=== PATIENT | female | born 1985 | race Caucasian/White ===

== ENCOUNTER → 2022-07-02 10:09 | Outpatient (BNVA) | payer OTHER, SELFPAY | PROVIDERS: PCP Family Medicine; Visit Provider Physician Assistant | DX: Z13.89 Encounter for screening for other disorder (principal) ==

== ENCOUNTER → 2022-07-02 10:09 | Outpatient (BNVA) | payer OTHER, SELFPAY | PROVIDERS: PCP Family Medicine; Visit Provider Physician Assistant ==

== ENCOUNTER → 2022-07-09 08:33 | Outpatient (BNVA) | payer OTHER, SELFPAY | PROVIDERS: PCP Family Medicine; Visit Provider Physician Assistant | DX: Z13.89 Encounter for screening for other disorder (principal) ==

== ENCOUNTER → 2022-07-24 09:31 | Outpatient (BNVA) | payer OTHER, SELFPAY | PROVIDERS: PCP Family Medicine; Visit Provider Physician Assistant | DX: Z13.89 Encounter for screening for other disorder (principal) ==

== ENCOUNTER 2022-07-31 09:54 | Outpatient (REF) | payer OTHER, SELFPAY ==
[2022-08-01 11:27] LABS: H Pylori Breath Test Negative (Negative)
== END 2022-07-31 09:55 | disposition home or self-care (01) ==
LOC: HO.LNP 09:54
PROVIDERS: PCP Family Medicine; Visit Provider Physician Assistant
DX: E66.9 Obesity, unspecified (principal); E16.1 Other hypoglycemia; Z90.3 Acquired absence of stomach [part of]; Z11.0 Encounter for screening for intestinal infectious diseases
CPT/HCPCS: 83013

== ENCOUNTER 2022-08-04 09:44 | Outpatient (REF) | payer OTHER, SELFPAY ==
--- NOTE | ~2022-08-04 | XR_ITS ---
EXAMINATION: XR CHEST CLINICAL INFORMATION: Bariatric service evaluation. E66.9. COMPARISON: None available. TECHNIQUE: 2 views of the chest were obtained. FINDINGS: Lungs clear. Heart size normal. Vascularity normal. No airspace consolidation or groundglass opacity or effusion. The hilar and mediastinal contours and visualized bony structures are unremarkable. XR/XR chest 2V IMPRESSION: Unremarkable examination.
--- NOTE | 2022-08-04 09:48 | ECG_ITS ---
Test Reason : OBS Blood Pressure : / mmHG Vent. Rate : 065 BPM Atrial Rate : 065 BPM P-R Int : 170 ms QRS Dur : 090 ms QT Int : 414 ms P-R-T Axes : 057 005 004 degrees QTc Int : 430 ms Normal sinus rhythm Normal ECG No previous ECGs available Referred By: Catrachita Castro Electronically Signed By:Sergio Wong
[2022-08-04 09:58] LABS: MANUAL DIFF FLAG NO
[2022-08-04 11:45] LABS: Basophils Percent Auto 0.5 % (0-2); Eosinophils Absolute Auto 0.1 X10*3/uL (0.0-0.4); Eosinophils Percent Auto 1.3 % (0-4); Hematocrit 39.6 % (37.0-47.0); Hemoglobin 12.8 g/dl (12.0-16.0); Imm Gran Abs Auto 0.01 X10*3/uL (0.00-0.03); Imm Gran Pct Auto 0.2 % (0.0-0.4); Lymphocytes Absolute Auto 1.3 X10*3/uL (1.2-4.9); Lymphocytes Percent Auto 23.7 % (20-40); Mean Corpuscular HGB Conc 32.3 g/dl (31.0-35.0); Mean Corpuscular Hemoglobin 30.3 pg (27.0-33.0); Mean Corpuscular Volume 93.6 fL (80.0-98.0); Mean Platelet Volume 10.2 fL (9.4-12.3); Monocytes Absolute Auto 0.4 X10*3/uL (0.1-1.2); Monocytes Percent Auto 6.9 % (2-11); Neutrophils Absolute Auto 3.7 x10*3/uL (2.0-8.3); Neutrophils Percent Auto 67.4 % (45-73); Platelet Count 229 X10*3/uL (160-400); Red Blood Count 4.23 X10*6/uL (4.20-5.50); Red Cell Distribution Width 13.5 % (11.0-16.0); White Blood Count 5.5 X10*3/uL (4.8-10.8)
[2022-08-04 11:47] LABS: Estimated Average Glucose 97 mg/dL
[2022-08-04 12:24] LABS: Alanine Aminotransferase 41 U/L (0-31); Albumin Level 4.1 g/dL (3.5-5.0); Alkaline Phosphatase 33 U/L (39-117); Anion Gap 12 (12-20); Aspartate Amino Transferase 31 U/L (5-31); Bilirubin Total 0.5 mg/dL (0.0-1.0); Blood Urea Nitrogen 15 mg/dL (9-16); C Reactive Protein < 0.10 mg/dL (< or = 0.50); Carbon Dioxide 25 mmol/L (22-29); Chloride 107 mmol/L (96-108); Cholesterol 175 mg/dL; Estimated Glomerular Filt Rate > 60; Glucose Random 87 mg/dL (60-115); HDL Cholesterol 47 mg/dL; Iron 98 mcg/dL (30-160); LDL Cholesterol Calculated 114 mg/dl; Percent Iron Saturation 31 % (15-50); Potassium 4.3 mmol/L (3.3-5.1); Sodium 140 mmol/L (135-145); Total Iron Binding Capacity 316 mcg/dL (228-428); Total Protein 6.9 g/dL (6.5-8.0); Triglycerides 70 mg/dL; Unsaturated Iron Binding 218 ug/dL
[2022-08-04 12:50] LABS: Ferritin 18 ng/mL (10-122); Folate 11.2 ng/mL (> or = 4.0); Insulin 6 uU/mL (2-29); TSH reflex Free T4 1.66 uIU/mL (0.32-4.0); Vitamin B12 295 pg/mL (200-900); Vitamin D 25-OH Total 28.9 ng/mL (>30)
[2022-08-06 14:28] LABS: Calcium (PTHI) 9.3 mg/dL (8.6-10.2); PTHI 30 pg/mL (16-77)
[2022-08-07 14:53] LABS: Zinc 71 mcg/dL (60-130)
[2022-08-08 06:08] LABS: Vitamin A 42 mcg/dL (38-98)
[2022-08-10 17:24] LABS: Vitamin B1 13 nmol/L (8-30)
== END 2022-08-04 09:45 | disposition home or self-care (01) ==
LOC: HO.XRAY 09:44
PROVIDERS: Visit Provider Physician Assistant
DX: Z01.818 Encounter for other preprocedural examination (principal); E66.9 Obesity, unspecified; E16.1 Other hypoglycemia; Z90.3 Acquired absence of stomach [part of]
CPT/HCPCS: 36415; 71046; 80053; 80061; 82306; 82607; 82728; 82746; 83036; 83525; 83540; 83970; 84425; 84443; 84590; 84630; 85025; 86140; 93005

== ENCOUNTER → 2022-08-14 09:34 | Outpatient (BNVA) | payer OTHER, SELFPAY | PROVIDERS: PCP Family Medicine; Visit Provider Physician Assistant | DX: E66.9 Obesity, unspecified (principal); Z90.3 Acquired absence of stomach [part of]; E16.1 Other hypoglycemia ==

== ENCOUNTER → 2022-08-25 10:16 | Outpatient (BNVA) | payer OTHER, SELFPAY | PROVIDERS: PCP Family Medicine; Visit Provider Dietitian, Registered | DX: E66.9 Obesity, unspecified (principal); E16.1 Other hypoglycemia; F50.81 Binge eating disorder; Z71.3 Dietary counseling and surveillance | CPT/HCPCS: 97802 ==

== ENCOUNTER → 2022-08-28 10:00 | Outpatient (BNVA) | payer OTHER, SELFPAY | PROVIDERS: PCP Family Medicine; Visit Provider Counselor Mental Health ==

== ENCOUNTER → 2022-09-04 15:00 | Outpatient (BNVA) | payer OTHER, SELFPAY | PROVIDERS: PCP Family Medicine; Visit Provider Physician Assistant ==

== ENCOUNTER 2022-09-16 08:00 | Outpatient (REF) | payer OTHER, SELFPAY ==
--- NOTE | ~2022-09-16 | FL_ITS ---
EXAMINATION: XR FLUOROSCOPY UPPER GI WITH AIR CLINICAL INFORMATION: Obesity COMPARISON: None available. TECHNIQUE: Upper GI was performed using thin and thick barium and effervescent granules FINDINGS: There is severe gastroesophageal reflux. Esophageal motility is normal. No hernia is seen. There are postsurgical changes to the stomach from gastric sleeve. No ulcer, mass, stricture or fold thickening is seen. FLUOROSCOPY TIME: 0.4 minutes DOSE AREA PRODUCT: 4.6 sparks per centimeter squared. Total dose 17.6 mgy. 18 saved fluoroscopic images FL/FL upper GI w air IMPRESSION: Postoperative change from gastric sleeve. Severe gastroesophageal reflux.
--- NOTE | ~2022-09-16 | US_ITS ---
EXAMINATION: US COMPLETE ABDOMEN WITH LIVER ELASTOGRAPHY CLINICAL INFORMATION: Obesity. COMPARISON: None available. TECHNIQUE: Real-time imaging of the abdominal viscera. Noninvasive ultrasound liver fibrosis assessment is performed using She ElastPQ point quantification shear wave elastography (2D-SWE) with a C5-2 MHz transducer. Multiple elastography samples are obtained. FINDINGS: PANCREAS: Normal. The visualized pancreatic head and body are normal in appearance. The remainder of is obscured from visualization by the overlying bowel gas. ABDOMINAL AORTA: The proximal, middle, and distal aortic segments are normal in caliber. INFERIOR VENA CAVA: Visualized portions are normal. LIVER: The liver demonstrates normal size, contour and mildly increased echogenicity. No focal lesion or intrahepatic biliary duct dilatation. The right lobe measures 16.6 cm in length. The left lobe measures 11.2 cm in length. Portal flow is towards the liver (hepatopetal). Shear wave liver elastography median stiffness is 1.62 m/s (reference: normal median stiffness is 1.3 m/s or less). IQR/median stiffness to assess sampling precision is 0.04 (reference: good quality data set is IQR/median stiffness of 0.15 or less). GALLBLADDER: Normal. The gallbladder is physiologically distended without evidence of stones, sludge, polyps, wall thickening or pericholecystic fluid. COMMON BILE DUCT: Normal in caliber measuring 0.4 cm in diameter. RIGHT KIDNEY: Normal. No hydronephrosis. No renal calculi or focal parenchymal lesions. The kidney measures 11.7 cm in maximum dimension. LEFT KIDNEY: Normal. No hydronephrosis. No renal calculi or focal parenchymal lesions. The kidney measures 10.8 cm in maximum dimension. SPLEEN: Normal. The spleen measures 10.8 cm in maximum dimension. FREE FLUID: None. US/US abdomen comp w elastography IMPRESSION: 1. There is generalized increase in hepatic echotexture, consistent with fatty infiltration or hepatocellular disease. Please correlate clinically. No focal hepatic mass or intrahepatic biliary dilatation is seen. 2. Liver elastography: In the absence of other known clinical signs, measurements rule out compensated advanced chronic liver disease. If there are known clinical signs, further testing may be needed for confirmation. REFERENCE: Society of Radiologists in Ultrasound Liver Stiffness Thresholds (2020): LIVER STIFFNESS THRESHOLDS: *Liver Stiffness equal or less than 1.3 m/s: High probability of being normal. *Liver Stiffness less than 1.7 m/s: In the absence of other known clinical signs, rules out compensated advanced chronic liver disease. *Liver Stiffness 1.7-2.1 m/s: Suggestive of compensated advanced chronic liver disease but need further test for confirmation. *Liver Stiffness over 2.1 m/s: Rules in compensated advanced chronic liver disease. *Liver Stiffness over 2.4 m/s: Suggestive of clinically significant portal hypertension. QUALITY OF DATA SET: *IQR/Median value equal or less than 0.15 implies a quality data set. *IQR/Median value over 0.15 implies a poor quality data set. SIGNIFICANT CHANGE FROM PRIOR EXAM: Significant change if liver stiffness measurement is 10% or greater from prior exam. OTHER CONSIDERATIONS: The stage of liver fibrosis may be overestimated in the setting of acute hepatitis, liver inflammation, elevated liver function tests, hepatic vascular congestion, obstructive cholestasis, non-fasting state, and infiltrative diseases such as amyloidosis and lymphoma. In some patients with NAFLD, the liver stiffness thresholds for compensated advanced chronic liver disease may be lower. In causes other than viral hepatitis and NAFLD, liver stiffness thresholds are not well established.
== END 2022-09-16 08:01 | disposition home or self-care (01) ==
LOC: HO.US 08:00
PROVIDERS: PCP Family Medicine; Visit Provider Physician Assistant
DX: E16.1 Other hypoglycemia (principal); E66.9 Obesity, unspecified; Z90.3 Acquired absence of stomach [part of]
CPT/HCPCS: 74246; 76705; 76981

== ENCOUNTER → 2022-09-17 13:22 | Outpatient (BNVA) | payer OTHER, SELFPAY | PROVIDERS: PCP Family Medicine; Visit Provider Counselor Mental Health ==

== ENCOUNTER → 2022-10-02 10:30 | Outpatient (BNVA) | payer OTHER, SELFPAY | PROVIDERS: PCP Family Medicine; Visit Provider Counselor Mental Health ==

== ENCOUNTER 2022-10-27 11:30 | Outpatient (AMB) | payer OTHER, SELFPAY ==
--- NOTE | 2022-10-27 13:13 | A.OFFWM_ITS ---
Intake Intake Visit Reasons: VIDEO F/U Allergies NSAIDS (Non-Steroidal Anti-Inflamma Allergy (Severe, Verified 10/27/22 12:54) Swelling hormone therpy Adverse Reaction (Intermediate, Uncoded 07/02/22 11:52) Swelling PFSH Medical History (Updated 09/01/22 @ 10:12 by Margarette Willson) DVT (deep venous thrombosis) Surgical History DVT of leg (deep venous thrombosis) H/O gastric sleeve Hx of section Family History Mother Diabetes Heart disease Father Bladder cancer Maternal Uncle Pulmonary embolism Social History Alcohol intake: current Alcohol intake frequency: a few times a week Patient Tobacco Use Status: Current everyday Tobacco user Tobacco use type: Cigarette Cigarettes Per Day: 6 Behavioral Health Assessment Weight Management Therapy Therapy Notes Details Patient reported an increase in anxiety. Does not understand why she cannot accomplish her goals but over extends herself for everyone else. She recently volunteered to make and buy items for a friends daughters birthday and now upset with herself as she does not have the money or time. Pt pondered why she always does this, why does she always want to go over the top for others but not herself. We discussed awareness, pausing, and reflecting also on childhood and what she did not receive. Not ready for EMDR but discussed actively working on self to be prepared if she decided to. Pt is looking to have weight loss surgery revision to help improve her health and quality of life. Pt reported that she has symptoms of ADHD and also depression and anxiety. She sees a therapist at her doctors office [facility] and her doctor prescribes her psychiatric medications. No history of inpatient psychiatric admissions, she reported that she used to self harm in high school and also would restrict food, now realizes she may have been anorexic. Pt reported that she has been smoking cigarettes since age 15, and also marijuana since age 18 periodically. She uses it every night. She reported that she almost in 2011 from DVT. Presenting Concerns Referral Source provider Reason for referral weight loss surgery revision Precipitating Event obesity Living Situation Current Living Situation Own At risk of losing current housing? No Satisfied with current living situation? Yes Comments Pt lives with her and her daughter. Food/Weight/Diet Expectations of change weight loss History/Relationship with food Pt stated that food is always there and would eat it if she is happy, sad, upset etc. She drinks up to 15 cups of coffee, soups, salads during the day. She stated that she struggled the most at night and would sit down and eat large portions and graze up until bed time. History/Relationship with weight LSG surgery in 2017 at 300lbs and got down to 175lbs. She reported a memory of being 7 years old eating a frozen waffle with butter on it. Pt stated that she started to gain weight around the age she hit puberty. History/Relationship with dieting sleeve done in 2017, exercise (up to 3 hours a day), self diets Binge Eating Do you frequently eat large amounts of food in short periods of time, not feeling physically hungry? Yes Do you feel out of control when you eat a large amount of food in a short period of time? No Do you eat large amounts of food rapidly and typically alone? No Night Eating Do you wake up at least once during the night to eat? No If you wake up in the night, do you find that it is necessary to eat something in order to fall back asleep? No Do you have little or no appetite in the morning and feel very hungry in the evening, often overeating between dinner and when you go to bed? Yes Social History Family history and relationship Pt stated that she was raised by her parents and siblings. She reported chaotic upbringing, her father would go through episodic periods of bipolar depression and also had to raise her two younger siblings. Pt is to her of 11 years and they have an 8 year old daughter together. 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 Cultural/Ethnic information Legal Involvement and History Current or historical involvement with the legal system? none known Education Preferred learning style Auditory, Verbal, Written, Learn by doing and Visual Currently enrolled in educational program? No Interested in further educational program? No Educational Interests/Skills works one night a week as a [employer]. Employment Employment Status Unemployed Wants help to find employment? No Meaningful activities hiking Financial Situation Describe current financial situation Often struggles with finance Financial assistance? None Service Service? No Mental Health and Addiction Treatment Current/Past substance abuse? Yes Comments marijuana and cigarette use. Also consumes about 5 alcoholic drinks in one night when she goes out (once a week). Current/Past addictive behavior concerns? Yes Pain Screening Current pain? No Pain in the last few months? No Medications Is the patient compliant with medications? No Does the patient have [place] Guardian in place? Not applicable Does the patient use complimentary health approaches? No Trauma/Abuse History History of trauma? Yes Assessment & Plan Assessment & Plan (1) Major depressive disorder, recurrent, moderate: Code(s): F33.1 - Major depressive disorder, recurrent, moderate (2) Anxiety disorder, unspecified: Code(s): F41.9 - Anxiety disorder, unspecified (3) Obesity (BMI 30-39.9): Code(s): E66.9 - Obesity, unspecified Plan Patient has some risk factors, however has had previous sleeve done. She has been doing well and has cut back on substances since starting. Patient is cleared but will be seen ongoing for therapeutic support. Telehealth Telehealth Location of provider rendering services: other Location of patient: address on file Patient Identification confirmed using: Name, : Yes Telehealth method: video Patient verbally consented to treatment: Yes Patient verbally consented to billing insurance company: Yes Patient informed of any privacy concerns related to visit: Yes Minutes spent on Phone/Video with Pt.: 40 Coding Level of Care Code Tele Psytx 45 mins (06629) Diagnoses Major depressive disorder, recurrent, moderate F33.1 Anxiety disorder, unspecified F41.9 Obesity (BMI 30-39.9) E66.9 Time Spent (min) 40
== END 2022-10-27 13:12 | disposition home or self-care (01) ==
LOC: HO.HBST 12:02
PROVIDERS: PCP Family Medicine; Visit Provider Counselor Mental Health
DX: F33.1 Major depressive disorder, recurrent, moderate (principal); F41.9 Anxiety disorder, unspecified; E66.9 Obesity, unspecified; Z68.33 Body mass index [BMI] 33.0-33.9, adult
CPT/HCPCS: 90834

== ENCOUNTER → 2022-10-27 11:30 | Outpatient (BNVA) | payer OTHER, SELFPAY | PROVIDERS: PCP Family Medicine; Visit Provider Counselor Mental Health ==

== ENCOUNTER 2022-10-27 12:49 | Outpatient (AMB) | payer OTHER, SELFPAY ==
--- NOTE | 2022-10-27 09:35 | MHC.OFFVISWM ---
Intake VS Expanded 10/27/22 12:51 Height 5 ft 7.5 in Weight 217 lb 6.4 oz BMI 33.5 BP 109/71 Blood Pressure Location Rt brachial Blood Pressure Position Sitting Pulse 75 Pulse Source Pulse Oximeter Temp 98.3 F Temperature Source Temporal Artery Scan Pulse Oximetry 98 Oxygen Delivery Method Room Air Body Fat 88.8 Body Fat Percentage 40.9 Free Fat Mass 128.6 Muscle Mass 122.2 Visceral Mass 9.0 Water Mass 92.0 BMR 1,794 Intake Visit Reasons: (OV) F/U SWL Allergies NSAIDS (Non-Steroidal Anti-Inflamma Allergy (Severe, Verified 10/27/22 12:54) Swelling hormone therpy Adverse Reaction (Intermediate, Uncoded 07/02/22 11:52) Swelling HPI HPI Comments History of Present Illness Details SWL follow up for revision of previous LSG. [employer] weight of 230.4 on 07/09, last appt on 09/04. TBWL of 13 lbs or 5.6%. Prior to [employer] here patient describes waking up drowning in acid form her stomach - coughing up this fluid. It has not happened since starting our meal plan. meal plan: - had financial issues and was not able to buy protein shakes. Has now restarted. 9am - 2 eggs and 1/4 cup vegetables 12 pm - shake 5:30 pm - protein and veg - doesn't know how much - now has a scale to measure bar after dinner exercise: not routine. has exercise bike and videos. will start 5 days per week. Coffee -?5 cups in am with sugar free creamer -- will switch to decaf Alcohol intake: once per week, 4 vodka, seltzer tobacco:?10 cigarettes per day or more marijuana: 2-3 night sper week no snakcing Pre op work up completed as follows: SWL classes -? 06/18 BH appts - 08/28, not cleared, sees Margarette regularly? ? RD appts - 08/25, follow up 09/26 - missed this appt, rescheduled to 10/30 H pylori - negative Labs- vit d defic CXR and ECG - both normal UGI - Postoperative change from gastric sleeve. Severe gastroesophageal reflux. Not discussed with Dr Blackburn until patient has more progress. ULS- fatty liver ?? ? PFSH Medical History (Updated 09/01/22 @ 10:12 by Margarette Willson) DVT (deep venous thrombosis) Surgical History DVT of leg (deep venous thrombosis) H/O gastric sleeve Hx of section Family History Mother Diabetes Heart disease Father Bladder cancer Maternal Uncle Pulmonary embolism Social History (Updated 09/04/22 @ 15:05 by TATIANA Romero) Alcohol intake: current Alcohol intake frequency: a few times a week Patient Tobacco Use Status: Current everyday Tobacco user Tobacco use type: Cigarette Cigarettes Per Day: 6 Assessment & Plan Assessment & Plan (1) Obesity: Code(s): E66.9 - Obesity, unspecified Plan: Pt has lost 13 lbs or 5.9% TBWL and has made many chnges with her substance use. She is working with Margarette regularly and shows alot of progress, we discussed today and she is working on developing new coping skills. meal plan - decrease to decaf (her suggestion) 2 hours after waking - 2 eggs with 1/4 c vegetables 3-4 hours later - shake 3-4 hours later - dinner 40z and 4 oz - use scale bar after dinner Exercise - must start 30 minute videos or stationary bike 5d/week Will have Dr lBackburn review her UGI first week of November, next appt with me in 3 weeks. Patient is obese and is not considered stable at this time. I spent 30 minutes in total with patient reviewing/updating records, examining the patient and counseling the patient on weight management as detailed above. (2) H/O gastric sleeve: Comment: 12/2016 Kathy Code(s): Z90.3 - Acquired absence of stomach [part of] (3) Anxiety with depression: Code(s): F41.8 - Other specified anxiety disorders Coding Level of Care Code Est Pt Level 4 (08385) Diagnoses Obesity E66.9 H/O gastric sleeve Z90.3 Anxiety with depression F41.8
[2022-10-27 12:51] VITALS: BP 109/71; PULSE 75; TEMP 36.8; O2SAT 98; BMI 33.5
== END 2022-10-27 13:33 | disposition home or self-care (01) ==
PROVIDERS: PCP Family Medicine; Visit Provider Physician Assistant
DX: E66.9 Obesity, unspecified (principal); Z68.33 Body mass index [BMI] 33.0-33.9, adult; Z90.3 Acquired absence of stomach [part of]; Z98.84 Bariatric surgery status; F41.8 Other specified anxiety disorders
CPT/HCPCS: 99214

== ENCOUNTER 2022-10-30 10:00 | Outpatient (AMB) | payer OTHER, SELFPAY ==
--- NOTE | 2022-10-30 10:00 | MHC.AMNUTRGE ---
Intake Intake Visit Reasons: VIDEO F/U SWL Allergies NSAIDS (Non-Steroidal Anti-Inflamma Allergy (Severe, Verified 10/27/22 12:54) Swelling hormone therpy Adverse Reaction (Intermediate, Uncoded 07/02/22 11:52) Swelling HPI Nutrition Presentation Details [facility] 2016 Reason for consult elevated BMI Diet Assmnt Details Patient met with Catrachita 3 days ago. Patient sure she has had some financial setbacks that have impacted her ability to follow her nutrition plan. Breakfast 2 eggs Equate 30g protein shake Equate 30g protein shake dinner salads and protein - last night chicken on the grill and cauliflower Exercise: stationary bike, 6 miles/30minutes not consistent SWL online classes : 06/18 completed back in August, but hasn't made any progress since Dietary counseling reduction Diagnosis Nutrition problem #1 overweight/obesity As related to (etiology) #1 excess energy intake and physical inactivity As evidenced by (sign/symptom) #1 high BMI Monitoring/Goals Nutrition problem monitoring total energy intake, level of knowledge/skill, total PRO intake, total CHO intake, weight and oral fluids Outcome progress progressing Learning/Education Readiness to learn good Stages of change action Most Recent Diabetes Results: No Data to Display [facility] Medical History (Updated 09/01/22 @ 10:12 by Margarette Willson) DVT (deep venous thrombosis) Surgical History DVT of leg (deep venous thrombosis) H/O gastric sleeve Hx of section Family History Mother Diabetes Heart disease Father Bladder cancer Maternal Uncle Pulmonary embolism Social History Alcohol intake: current Alcohol intake frequency: a few times a week Patient Tobacco Use Status: Current everyday Tobacco user Tobacco use type: Cigarette Cigarettes Per Day: 6 Assessment & Plan Assessment & Plan (1) Obesity (BMI 30-39.9): Code(s): E66.9 - Obesity, unspecified Patient Instructions: Will need another follow up with me to review classes and help support pt to follow 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 She will complete her online classes and follow-up with me 12/10 at 10am Telehealth Telehealth Location of provider rendering services: practice address Location of patient: address on file Patient Identification confirmed using: Name, : Yes Telehealth method: video Patient verbally consented to treatment: Yes Patient verbally consented to billing insurance company: Yes Patient informed of any privacy concerns related to visit: Yes Minutes spent on Phone/Video with Pt.: 10 Coding Level of Care Code Nutr Indiv Subseq ([id number]) Diagnoses Obesity (BMI 30-39.9) E66.9 Time Spent (min) 10
== END 2022-10-30 11:00 | disposition home or self-care (01) ==
LOC: HO.HBS 10:45
PROVIDERS: PCP Family Medicine; Visit Provider Dietitian, Registered
DX: E66.9 Obesity, unspecified (principal)

== ENCOUNTER → 2022-10-30 10:00 | Outpatient (BNVA) | payer OTHER, SELFPAY | PROVIDERS: PCP Family Medicine; Visit Provider Dietitian, Registered | DX: E66.9 Obesity, unspecified (principal); Z90.3 Acquired absence of stomach [part of] | CPT/HCPCS: 97803 ==

== ENCOUNTER 2022-11-05 13:07 | Outpatient (AMB) | payer OTHER, SELFPAY ==
--- NOTE | 2022-11-05 16:40 | A.OFFWM_ITS ---
Intake Intake Visit Reasons: (OV) f/u BH Allergies NSAIDS (Non-Steroidal Anti-Inflamma Allergy (Severe, Verified 10/27/22 12:54) Swelling hormone therpy Adverse Reaction (Intermediate, Uncoded 07/02/22 11:52) Swelling PFSH Medical History (Updated 09/01/22 @ 10:12 by Margarette Willson) DVT (deep venous thrombosis) Surgical History DVT of leg (deep venous thrombosis) H/O gastric sleeve Hx of section Family History Mother Diabetes Heart disease Father Bladder cancer Maternal Uncle Pulmonary embolism Social History Alcohol intake: current Alcohol intake frequency: a few times a week Patient Tobacco Use Status: Current everyday Tobacco user Tobacco use type: Cigarette Cigarettes Per Day: 6 Behavioral Health Assessment Weight Management Therapy Therapy Notes Details Patient was distraught and tearful today. Reported that her asked for a separation and she is fearful they wont make it. She now sees how wrong she was with many things including communication, irritability, alcohol use and lack of healthy coping skills. Although she feels she has made many mistakes, she reported that it was a big wake up call for her to really focus on improving herself. Pt is looking to have weight loss surgery revision to help improve her health and quality of life. Pt reported that she has symptoms of ADHD and also depression and anxiety. She sees a therapist at her doctors office [facility] and her doctor prescribes her psychiatric medications. No history of inpatient psychiatric admissions, she reported that she used to self harm in high school and also would restrict food, now realizes she may have been anorexic. Pt reported that she has been smoking cigarettes since age 15, and also marijuana since age 18 periodically. She uses it every night. She reported that she almost in 2011 from DVT. Presenting Concerns Referral Source provider Reason for referral weight loss surgery revision Precipitating Event obesity Living Situation Current Living Situation Own At risk of losing current housing? No Satisfied with current living situation? Yes Comments Pt lives with her and her daughter. Food/Weight/Diet Expectations of change weight loss History/Relationship with food Pt stated that food is always there and would eat it if she is happy, sad, upset etc. She drinks up to 15 cups of coffee, soups, salads during the day. She stated that she struggled the most at night and would sit down and eat large portions and graze up until bed time. History/Relationship with weight LSG surgery in 2017 at 300lbs and got down to 175lbs. She reported a memory of being 7 years old eating a frozen waffle with butter on it. Pt stated that she started to gain weight around the age she hit puberty. History/Relationship with dieting sleeve done in 2017, exercise (up to 3 hours a day), self diets Binge Eating Do you frequently eat large amounts of food in short periods of time, not feeling physically hungry? Yes Do you feel out of control when you eat a large amount of food in a short period of time? No Do you eat large amounts of food rapidly and typically alone? No Night Eating Do you wake up at least once during the night to eat? No If you wake up in the night, do you find that it is necessary to eat something in order to fall back asleep? No Do you have little or no appetite in the morning and feel very hungry in the evening, often overeating between dinner and when you go to bed? Yes Social History Family history and relationship Pt stated that she was raised by her parents and siblings. She reported chaotic upbringing, her father would go through episodic periods of bipolar depression and also had to raise her two younger siblings. Pt is to her of 11 years and they have an 8 year old daughter together. 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 Cultural/Ethnic information Legal Involvement and History Current or historical involvement with the legal system? none known Education Preferred learning style Auditory, Verbal, Written, Learn by doing and Visual Currently enrolled in educational program? No Interested in further educational program? No Educational Interests/Skills works one night a week as a [employer]. Employment Employment Status Unemployed Wants help to find employment? No Meaningful activities hiking Financial Situation Describe current financial situation Often struggles with finance Financial assistance? None Service Service? No Mental Health and Addiction Treatment Current/Past substance abuse? Yes Comments marijuana and cigarette use. Also consumes about 5 alcoholic drinks in one night when she goes out (once a week). Current/Past addictive behavior concerns? Yes Pain Screening Current pain? No Pain in the last few months? No Medications Is the patient compliant with medications? No Does the patient have [place] Guardian in place? Not applicable Does the patient use complimentary health approaches? No Trauma/Abuse History History of trauma? Yes Assessment & Plan Assessment & Plan (1) Major depressive disorder, recurrent, moderate: Code(s): F33.1 - Major depressive disorder, recurrent, moderate (2) Anxiety disorder, unspecified: Code(s): F41.9 - Anxiety disorder, unspecified (3) Obesity (BMI 30-39.9): Code(s): E66.9 - Obesity, unspecified Plan Patient has some risk factors, however has had previous sleeve done. She has been doing well and has cut back on substances since starting. She should continue to abstain from alcohol as she reported alcohol abuse after she had her previous surgery. Patient is cleared but will be seen ongoing for therapeutic support. Coding Level of Care Code Psytx 45 mins ([id number]) Diagnoses Major depressive disorder, recurrent, moderate F33.1 Anxiety disorder, unspecified F41.9 Obesity (BMI 30-39.9) E66.9 Time Spent (min) 40
== END 2022-11-05 16:40 | disposition home or self-care (01) ==
PROVIDERS: PCP Family Medicine; Visit Provider Counselor Mental Health
DX: F33.1 Major depressive disorder, recurrent, moderate (principal); F41.9 Anxiety disorder, unspecified; E66.9 Obesity, unspecified
CPT/HCPCS: 90834

== ENCOUNTER → 2022-11-05 13:07 | Outpatient (BNVA) | payer OTHER, SELFPAY | PROVIDERS: PCP Family Medicine; Visit Provider Counselor Mental Health ==

== ENCOUNTER → 2022-11-14 11:00 | Outpatient (BNVA) | payer OTHER, SELFPAY | PROVIDERS: PCP Family Medicine; Visit Provider Counselor Mental Health | DX: F33.1 Major depressive disorder, recurrent, moderate (principal); F41.9 Anxiety disorder, unspecified; E66.9 Obesity, unspecified ==

== ENCOUNTER 2022-11-27 14:26 | Outpatient (AMB) | payer OTHER, SELFPAY ==
--- NOTE | 2022-11-27 14:28 | MHC.OFFVISWM ---
Intake VS Expanded 11/27/22 14:36 Height 5 ft 7.5 in Weight 208 lb 3.2 oz BMI 32.1 BP 116/66 Blood Pressure Location Rt brachial Blood Pressure Position Sitting Pulse 80 Pulse Source Pulse Oximeter Temp 98.0 F Temperature Source Temporal Artery Scan Pulse Oximetry 98 Oxygen Delivery Method Room Air Body Fat 82.6 Body Fat Percentage 39.7 Free Fat Mass 125.4 Muscle Mass 119.0 Visceral Mass 8.0 Water Mass 89.8 BMR 1,744 Intake Visit Reasons: (OV) F/U SWL Allergies NSAIDS (Non-Steroidal Anti-Inflamma Allergy (Severe, Verified 11/27/22 14:40) Swelling hormone therpy Adverse Reaction (Intermediate, Uncoded 11/27/22 14:40) Swelling HPI HPI Comments History of Present Illness Details [facility] 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 Has los t 22.2 lbs 9.8% TB WL. She will be st arting a new job n ext week and needs to delay her surg [facility] until she is w orking for at leas t 90 days due to n ew insurance. Caf cally 0 stll having 5 cups coffee in am - but now 1/2 d ecaf Still smoking cigarettes - will restart nicotine lozengers now to q uit meal plan - 2 premier shakes an d one meal of 54-5 oz and 4-5 ounces . No regualr exerc ise routine yet. ETOH - 1-2 vodka with seltzer per w [place]. Will stop the carbonation - due to severe GERD. S he is working with Margarette on [place] [facility] CUPR. Pre op work up completed as follows: [facility] c lasses -? 06/18 BH a ppts - 08/28, now khalif chavarria, sees Margarette regularly? ? RD a ppts - 08/25, zenaidao w up 09/26 - missed this appt, resche duled to 10/30, fol low up on 12/10. H pylori - negative Labs- vit d defic CXR and ECG - bot h normal UGI -?Pos toperative change from gastric sleev e. Severe gastroes ophageal reflux. N ot discussed with Dr Blackburn until patient has more progress . ULS- fatty liver ? PFSH Medical History (Updated 11/27/22 @ 15:09 by Catrachita Castro PA-C) DVT (deep venous thrombosis) Surgical History DVT of leg (deep venous thrombosis) H/O gastric sleeve Hx of section Family History Mother Diabetes Heart disease Father Bladder cancer Maternal Uncle Pulmonary embolism Social History Alcohol intake: current Alcohol intake frequency: a few times a week Patient Tobacco Use Status: Current everyday Tobacco user Tobacco use type: Cigarette Cigarettes Per Day: 6 Physical Exam Vital Signs: Last Vital Signs Temp 98.0 F 11/27/22 14:36 Pulse 80 11/27/22 14:36 BP 116/66 11/27/22 14:36 Pulse Ox 98 11/27/22 14:36 Oxygen Delivery Method Room Air 11/27/22 14:36 BMI result Body Mass Index 32.1 Assessment & Plan Assessment & Plan (1) Obesity: Code(s): E66.9 - Obesity, unspecified Plan: She has lost her required weight pre operatively but still has lifestyle changes to make. 1. Needs to continue to decrease her caffeine intake - within 2 weeks, 1 cup decaf in am (will help her quit smoking also) 2. Quit smoking 3. Stop seltzer Meal plan Continue 2 shakes, 1 meal should be 8 forks (4oz) each of protein and vegetable Will talk more about exercise at next appt - once she knows her new work schedule better. Wants to wait until late February for revision surgery. Will wait until substances are in better control before discussion with DR Charo Bernstein appt with me in 3 weeks, Margarette scheduled now. Patient is morbidly obese and is not considered stable at this time. I spent 30 minutes in total with patient reviewing/updating records, examining the patient and counseling the patient on weight management as detailed above. (2) H/O gastric sleeve: Comment: 12/2016 [facility] Code(s): Z90.3 - Acquired absence of stomach [part of] (3) Smoker: Code(s): F17.200 - Nicotine dependence, unspecified, uncomplicated (4) Anxiety disorder, unspecified: Code(s): F41.9 - Anxiety disorder, unspecified (5) DVT (deep venous thrombosis): Code(s): I82.409 - Acute embolism and thrombosis of unspecified deep veins of unspecified lower extremity Coding Level of Care Code Est Pt Level 4 (14978) Diagnoses Obesity E66.9 H/O gastric sleeve Z90.3 Smoker F17.200 Anxiety disorder, unspecified F41.9 DVT (deep venous thrombosis) I82.409
[2022-11-27 14:36] VITALS: BP 116/66; PULSE 80; TEMP 36.7; O2SAT 98; BMI 32.1
== END 2022-11-27 15:12 | disposition home or self-care (01) ==
PROVIDERS: PCP Family Medicine; Visit Provider Physician Assistant
DX: E66.9 Obesity, unspecified (principal); Z90.3 Acquired absence of stomach [part of]; F17.200 Nicotine dependence, unspecified, uncomplicated; F41.9 Anxiety disorder, unspecified; I82.409 Acute embolism and thrombosis of unspecified deep veins of unspecified lower extremity
CPT/HCPCS: 99214

== ENCOUNTER → 2022-11-27 14:26 | Outpatient (BNVA) | payer OTHER, SELFPAY | PROVIDERS: PCP Family Medicine; Visit Provider Physician Assistant ==

== ENCOUNTER 2023-02-18 14:51 | Outpatient (AMB) | payer MEDICAID, SELFPAY ==
--- NOTE | 2023-02-18 11:09 | MHC.OFFVISWM ---
Intake VS Expanded 02/18/23 15:03 BP 130/69 Blood Pressure Location Rt brachial Blood Pressure Position Sitting Pulse 79 Pulse Source Pulse Oximeter Temp 98.3 F Temperature Source Temporal Artery Scan Pulse Oximetry 100 Oxygen Delivery Method Room Air Height 5 ft 7.5 in Weight 195 lb 9.6 oz BMI 30.2 Body Fat % 36.1 Body Fat Mass 70.6 Fat Free Mass 125.0 Visceral Fat Rating 6.0 Body Water % 45.8 Body Water Mass 89.6 Muscle Mass/Score 118.6 Basal Metabolic Rate/Score 1,718 Intake Visit Reasons: (OV) F/U SWL Allergies NSAIDS (Non-Steroidal Anti-Inflamma Allergy (Severe, Verified 02/18/23 14:58) Swelling hormone therpy Adverse Reaction (Intermediate, Uncoded 01/27/23 11:30) Swelling Medication List - Last Reconciled 02/18/23 by FLACO Melissa-Eleonora cholecalciferol (vitamin D3) 25 mcg PO DAILY cyanocobalamin (vitamin B-12) 250 mcg (1/2 x 500 mcg) PO DAILY HPI HPI Comments History of Present Illness Details [facility]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 She had lsot 9.8% TBWL by november 2022 but then had to stop appointments due to starting a new job next week and needed to delay her surgery until she is working for at least 90 days due to new insurance. Last seen in November at 208.1 lbs, did not have continued BH appointments. TBWL now is 34.8 lbs or 15%. Caffeine - weekdays 3 cups per day with sugar free creamer, weekends about drinks coffee all day 10 am - Premier shake 12 - 1pm - 2 scrambled eggs and 1/2 cup. 3 pm - shake 6pm - not measuring protein and vegetables - august 1 cup in total Exercise - was doing 2 mile videos and liked them alot. Still smoking cigarettes - 1 ppd, asked me for nicotine lozenger refill. ETOH - 4 vodka with seltzer per week. Was suggested to stop the carbonation - due to severe GERD. She was working with Margarette on coping mechanisms. Pre op work up completed as follows: [facility] classes -? 06/18 appts - 08/28, now cleared, was seeing Margarette regularly, no appts since November? RD appts - 08/25, follow up 09/26 - missed this appt, rescheduled to 10/30, missed follow ups and is not cleared yet H pylori - negative Labs- vit d defic CXR and ECG - both normal UGI -?Postoperative change from gastric sleeve. Severe gastroesophageal reflux. Not discussed with Dr Blackburn until patient has more progress ULS- fatty liver [facility] Medical History (Updated 01/27/23 @ 11:30 by Julia De La Cruz) DVT (deep venous thrombosis) Surgical History Hx of section DVT of leg (deep venous thrombosis) H/O gastric sleeve Family History Mother Diabetes Heart disease Father Bladder cancer Maternal Uncle Pulmonary embolism Social History (System 01/27/23 @ 11:30 by Julia De La Cruz) Alcohol intake: current Alcohol intake frequency: a few times a week Patient Tobacco Use Status: Current everyday Tobacco user Tobacco use type: Cigarette Cigarette Packs Per Day: 1 Assessment & Plan Assessment & Plan (1) Obesity: Code(s): E66.9 - Obesity, unspecified Plan: Significant weight loss, but still has GERD symptoms (also seen on UGI) and is still smoking, lots of caffeine and carbonation. She knows she is not a candidate for revision with these habits, but more importantly she needs to stop them as they are making her reflux worse. She will resume appts with Margarette for help with coping mechanisms. 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 She stopped her SSRI and Welbutrin, and I strongly recomended that she vera an appt with her PCP to discuss restarting an antianxiety med and for help with smoking cessation. Will see her again in one month. She is being appts for appt withMargarette Blackburn needs to review UGI, and EGD to be scheduled beofre surgery. Patient is morbidly obese and is not considered stable at this time. I spent 30 minutes in total with patient reviewing/updating records, examining the patient and counseling the patient on weight management as detailed above. (2) H/O gastric sleeve: Comment: 12/2016 [facility] Code(s): Z90.3 - Acquired absence of stomach [part of] (3) Smoker: Code(s): F17.200 - Nicotine dependence, unspecified, uncomplicated (4) Anxiety disorder, unspecified: Code(s): F41.9 - Anxiety disorder, unspecified Coding Level of Care Code Est Pt Level 4 (62229) Diagnoses Obesity E66.9 H/O gastric sleeve Z90.3 Smoker F17.200 Anxiety disorder, unspecified F41.9
[2023-02-18 15:03] VITALS: BP 130/69; PULSE 79; TEMP 36.8; O2SAT 100; BMI 30.2
== END 2023-02-18 16:16 | disposition home or self-care (01) ==
PROVIDERS: PCP Family Medicine; Visit Provider Physician Assistant
DX: E66.9 Obesity, unspecified (principal); Z90.3 Acquired absence of stomach [part of]; F17.200 Nicotine dependence, unspecified, uncomplicated; F41.9 Anxiety disorder, unspecified
CPT/HCPCS: 99214

== ENCOUNTER → 2023-02-18 14:51 | Outpatient (BNVA) | payer MEDICAID, SELFPAY | PROVIDERS: PCP Family Medicine; Visit Provider Physician Assistant | DX: E66.9 Obesity, unspecified (principal); F41.9 Anxiety disorder, unspecified; F17.210 Nicotine dependence, cigarettes, uncomplicated; Z90.3 Acquired absence of stomach [part of]; Z68.30 Body mass index [BMI] 30.0-30.9, adult | CPT/HCPCS: 99212 ==

== ENCOUNTER 2023-03-02 09:30 | Outpatient (AMB) | payer OTHER, SELFPAY ==
--- NOTE | 2023-03-02 10:13 | MHC.WMTHER ---
Intake Intake Visit Reasons: VIDEO F/U Allergies NSAIDS (Non-Steroidal Anti-Inflamma Allergy (Severe, Verified 02/18/23 14:58) Swelling hormone therpy Adverse Reaction (Intermediate, Uncoded 01/27/23 11:30) Swelling PFSH Medical History (Updated 01/27/23 @ 11:30 by Julia De La Cruz) DVT (deep venous thrombosis) Surgical History Hx of section DVT of leg (deep venous thrombosis) H/O gastric sleeve Family History Mother Diabetes Heart disease Father Bladder cancer Maternal Uncle Pulmonary embolism Social History (Updated 02/18/23 @ 15:02 by Shantel Barclay CMA) Alcohol intake: current Alcohol intake frequency: a few times a week Patient Tobacco Use Status: Current everyday Tobacco user Tobacco use type: Cigarette Cigarette Packs Per Day: 1 Behavioral Health Assessment Weight Management Therapy Therapy Notes Details Patient is now going through a divorce, she is trying to continuing to working on her goals and also not overwhelm herself. Pt is looking to have weight loss surgery revision to help improve her health and quality of life. Pt reported that she has symptoms of ADHD and also depression and anxiety. She sees a therapist at her doctors office [facility] and her doctor prescribes her psychiatric medications. No history of inpatient psychiatric admissions, she reported that she used to self harm in high school and also would restrict food, now realizes she may have been anorexic. Pt reported that she has been smoking cigarettes since age 15, and also marijuana since age 18 periodically. She uses it every night. She reported that she almost in 2011 from DVT. Presenting Concerns Referral Source provider Reason for referral weight loss surgery revision Precipitating Event obesity Living Situation Current Living Situation Own At risk of losing current housing? No Satisfied with current living situation? Yes Comments Pt lives with her daughter. Food/Weight/Diet Expectations of change weight loss History/Relationship with food Pt stated that food is always there and would eat it if she is happy, sad, upset etc. She drinks up to 15 cups of coffee, soups, salads during the day. She stated that she struggled the most at night and would sit down and eat large portions and graze up until bed time. History/Relationship with weight LSG surgery in 2017 at 300lbs and got down to 175lbs. She reported a memory of being 7 years old eating a frozen waffle with butter on it. Pt stated that she started to gain weight around the age she hit puberty. History/Relationship with dieting sleeve done in 2017, exercise (up to 3 hours a day), self diets Binge Eating Do you frequently eat large amounts of food in short periods of time, not feeling physically hungry? Yes Do you feel out of control when you eat a large amount of food in a short period of time? No Do you eat large amounts of food rapidly and typically alone? No Night Eating Do you wake up at least once during the night to eat? No If you wake up in the night, do you find that it is necessary to eat something in order to fall back asleep? No Do you have little or no appetite in the morning and feel very hungry in the evening, often overeating between dinner and when you go to bed? Yes Social History Family history and relationship Pt stated that she was raised by her parents and siblings. She reported chaotic upbringing, her father would go through episodic periods of bipolar depression and also had to raise her two younger siblings. Pt is going through a divorce from her of 11 years and they have an 8 year old daughter together. Parental/Familial sanitarian obligations child Developmental history and status none known Social support mom. Cultural/Ethnic information Legal Involvement and History Current or historical involvement with the legal system? none known Education Preferred learning style Auditory, Verbal, Written, Learn by doing and Visual Currently enrolled in educational program? No Interested in further educational program? No Educational Interests/Skills works one night a week as a [employer]. Employment Employment Status Unemployed Wants help to find employment? No Meaningful activities hiking Financial Situation Describe current financial situation Often struggles with finance Financial assistance? None Service Service? No Mental Health and Addiction Treatment Current/Past substance abuse? Yes Comments marijuana and cigarette use. Also consumes about 5 alcoholic drinks in one night when she goes out (once a week). Current/Past addictive behavior concerns? Yes Pain Screening Current pain? No Pain in the last few months? No Medications Is the patient compliant with medications? No Does the patient have [place] Guardian in place? Not applicable Does the patient use complimentary health approaches? No Trauma/Abuse History History of trauma? Yes Assessment & Plan Assessment & Plan (1) Major depressive disorder, recurrent, moderate: Code(s): F33.1 - Major depressive disorder, recurrent, moderate (2) Anxiety disorder, unspecified: Code(s): F41.9 - Anxiety disorder, unspecified (3) Obesity (BMI 30-39.9): Code(s): E66.9 - Obesity, unspecified Plan Patient has some risk factors, however has had previous sleeve done. She has been doing well and has cut back on substances since starting. She should continue to abstain from alcohol as she reported alcohol abuse after she had her previous surgery. Patient is cleared but will be seen ongoing for therapeutic support. Telehealth Telehealth Location of provider rendering services: practice address Location of patient: address on file Patient Identification confirmed using: Name, : Yes Telehealth method: video Patient verbally consented to treatment: Yes Patient verbally consented to billing insurance company: Yes Patient informed of any privacy concerns related to visit: Yes Minutes spent on Phone/Video with Pt.: 45 Coding Level of Care Code Tele Psytx 45 mins ([id number]) Diagnoses Major depressive disorder, recurrent, moderate F33.1 Anxiety disorder, unspecified F41.9 Obesity (BMI 30-39.9) E66.9 Time Spent (min) 45
== END 2023-03-02 10:16 | disposition home or self-care (01) ==
LOC: HO.HBST 10:08
PROVIDERS: Visit Provider Counselor Mental Health
DX: F33.1 Major depressive disorder, recurrent, moderate (principal); F41.9 Anxiety disorder, unspecified; E66.9 Obesity, unspecified
CPT/HCPCS: 90834

== ENCOUNTER → 2023-03-02 09:30 | Outpatient (BNVA) | payer MEDICAID, SELFPAY | PROVIDERS: Visit Provider Counselor Mental Health ==

== ENCOUNTER 2023-03-20 09:19 | Outpatient (AMB) | payer OTHER, SELFPAY ==
--- NOTE | 2023-04-02 14:03 | MHC.WMTHER ---
Intake Intake Visit Reasons: VIDEO F/U BH Allergies NSAIDS (Non-Steroidal Anti-Inflamma Allergy (Severe, Verified 02/18/23 14:58) Swelling hormone therpy Adverse Reaction (Intermediate, Uncoded 01/27/23 11:30) Swelling PFSH Medical History (Updated 01/27/23 @ 11:30 by Julia De La Cruz) DVT (deep venous thrombosis) Surgical History Hx of section DVT of leg (deep venous thrombosis) H/O gastric sleeve Family History Mother Diabetes Heart disease Father Bladder cancer Maternal Uncle Pulmonary embolism Social History (Updated 02/18/23 @ 15:02 by Shantel Barclay CMA) Alcohol intake: current Alcohol intake frequency: a few times a week Patient Tobacco Use Status: Current everyday Tobacco user Tobacco use type: Cigarette Cigarette Packs Per Day: 1 Behavioral Health Assessment Weight Management Therapy Therapy Notes Details Patient is now going through a divorce, she is trying to continuing to working on her goals and also not overwhelm herself. Pt has decided that right now she might not be able to have surgery due to everything that is happening. roommate also moved out suddenly. Her soon to be ex also wants to sell the home she lives in with their daughter. She is working and has a new relationship also. Pt is looking to have weight loss surgery revision to help improve her health and quality of life. Pt reported that she has symptoms of ADHD and also depression and anxiety. She sees a therapist at her doctors office [facility] and her doctor prescribes her psychiatric medications. No history of inpatient psychiatric admissions, she reported that she used to self harm in high school and also would restrict food, now realizes she may have been anorexic. Pt reported that she has been smoking cigarettes since age 15, and also marijuana since age 18 periodically. She uses it every night. She reported that she almost in 2011 from DVT. Presenting Concerns Referral Source provider Reason for referral weight loss surgery revision Precipitating Event obesity Living Situation Current Living Situation Own At risk of losing current housing? No Satisfied with current living situation? Yes Comments Pt lives with her daughter. Food/Weight/Diet Expectations of change weight loss History/Relationship with food Pt stated that food is always there and would eat it if she is happy, sad, upset etc. She drinks up to 15 cups of coffee, soups, salads during the day. She stated that she struggled the most at night and would sit down and eat large portions and graze up until bed time. History/Relationship with weight LSG surgery in 2017 at 300lbs and got down to 175lbs. She reported a memory of being 7 years old eating a frozen waffle with butter on it. Pt stated that she started to gain weight around the age she hit puberty. History/Relationship with dieting sleeve done in 2017, exercise (up to 3 hours a day), self diets Binge Eating Do you frequently eat large amounts of food in short periods of time, not feeling physically hungry? Yes Do you feel out of control when you eat a large amount of food in a short period of time? No Do you eat large amounts of food rapidly and typically alone? No Night Eating Do you wake up at least once during the night to eat? No If you wake up in the night, do you find that it is necessary to eat something in order to fall back asleep? No Do you have little or no appetite in the morning and feel very hungry in the evening, often overeating between dinner and when you go to bed? Yes Social History Family history and relationship Pt stated that she was raised by her parents and siblings. She reported chaotic upbringing, her father would go through episodic periods of bipolar depression and also had to raise her two younger siblings. Pt is going through a divorce from her of 11 years and they have an 8 year old daughter together. 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 Cultural/Ethnic information Legal Involvement and History Current or historical involvement with the legal system? none known Education Preferred learning style Auditory, Verbal, Written, Learn by doing and Visual Currently enrolled in educational program? No Interested in further educational program? No Educational Interests/Skills works one night a week as a [employer]. Employment Employment Status Unemployed Wants help to find employment? No Meaningful activities hiking Financial Situation Describe current financial situation Often struggles with finance Financial assistance? None Service Service? No Mental Health and Addiction Treatment Current/Past substance abuse? Yes Comments marijuana and cigarette use. Also consumes about 5 alcoholic drinks in one night when she goes out (once a week). Current/Past addictive behavior concerns? Yes Pain Screening Current pain? No Pain in the last few months? No Medications Is the patient compliant with medications? No Does the patient have [place] Guardian in place? Not applicable Does the patient use complimentary health approaches? No Trauma/Abuse History History of trauma? Yes Assessment & Plan Assessment & Plan (1) Major depressive disorder, recurrent, moderate: Code(s): F33.1 - Major depressive disorder, recurrent, moderate (2) Anxiety disorder, unspecified: Code(s): F41.9 - Anxiety disorder, unspecified (3) Obesity (BMI 30-39.9): Code(s): E66.9 - Obesity, unspecified Plan Patient has some risk factors, however has had previous sleeve done. She has been doing well and has cut back on substances since starting. She should continue to abstain from alcohol as she reported alcohol abuse after she had her previous surgery. Patient is cleared but will be seen ongoing for therapeutic support. Telehealth Telehealth Location of provider rendering services: practice address Location of patient: address on file Patient Identification confirmed using: Name, : Yes Telehealth method: video Patient verbally consented to treatment: Yes Patient verbally consented to billing insurance company: Yes Patient informed of any privacy concerns related to visit: Yes Minutes spent on Phone/Video with Pt.: 45 Coding Level of Care Code Tele Psytx 45 mins ([id number]) Diagnoses Major depressive disorder, recurrent, moderate F33.1 Anxiety disorder, unspecified F41.9 Obesity (BMI 30-39.9) E66.9 Time Spent (min) 45
== END 2023-04-02 14:03 | disposition home or self-care (01) ==
LOC: HO.HBST 09:19
PROVIDERS: Visit Provider Counselor Mental Health
DX: F33.1 Major depressive disorder, recurrent, moderate (principal); F41.9 Anxiety disorder, unspecified; E66.9 Obesity, unspecified
CPT/HCPCS: 90834

== ENCOUNTER → 2023-03-20 09:19 | Outpatient (BNVA) | payer OTHER, SELFPAY | PROVIDERS: Visit Provider Counselor Mental Health ==

== ENCOUNTER 2023-04-10 10:28 | Outpatient (AMB) | payer MEDICAID, SELFPAY ==
--- NOTE | 2023-04-10 11:34 | MHC.WMTHER ---
Intake Intake Visit Reasons: VIDEO F/U BH Allergies NSAIDS (Non-Steroidal Anti-Inflamma Allergy (Severe, Verified 02/18/23 14:58) Swelling hormone therpy Adverse Reaction (Intermediate, Uncoded 01/27/23 11:30) Swelling PFSH Medical History (Updated 01/27/23 @ 11:30 by Julia De La Cruz) DVT (deep venous thrombosis) Surgical History Hx of section DVT of leg (deep venous thrombosis) H/O gastric sleeve Family History Mother Diabetes Heart disease Father Bladder cancer Maternal Uncle Pulmonary embolism Social History (Updated 02/18/23 @ 15:02 by Shantel Barclay CMA) Alcohol intake: current Alcohol intake frequency: a few times a week Patient Tobacco Use Status: Current everyday Tobacco user Tobacco use type: Cigarette Cigarette Packs Per Day: 1 Behavioral Health Assessment Weight Management Therapy Therapy Notes Details Patient reported that she is trying to quit smoking and drinking coffee. She is hoping to continue improving her health and would like to see if this helps resolve her reflux issues. If not she will reconsider revision surgery. Pt is looking to have weight loss surgery revision to help improve her health and quality of life. Pt reported that she has symptoms of ADHD and also depression and anxiety. She sees a therapist at her doctors office [facility] and her doctor prescribes her psychiatric medications. No history of inpatient psychiatric admissions, she reported that she used to self harm in high school and also would restrict food, now realizes she may have been anorexic. Pt reported that she has been smoking cigarettes since age 15, and also marijuana since age 18 periodically. She uses it every night. She reported that she almost in 2011 from DVT. Presenting Concerns Referral Source provider Reason for referral weight loss surgery revision Precipitating Event obesity Living Situation Current Living Situation Own At risk of losing current housing? No Satisfied with current living situation? Yes Comments Pt lives with her daughter. Food/Weight/Diet Expectations of change weight loss History/Relationship with food Pt stated that food is always there and would eat it if she is happy, sad, upset etc. She drinks up to 15 cups of coffee, soups, salads during the day. She stated that she struggled the most at night and would sit down and eat large portions and graze up until bed time. History/Relationship with weight LSG surgery in 2017 at 300lbs and got down to 175lbs. She reported a memory of being 7 years old eating a frozen waffle with butter on it. Pt stated that she started to gain weight around the age she hit puberty. History/Relationship with dieting sleeve done in 2017, exercise (up to 3 hours a day), self diets Binge Eating Do you frequently eat large amounts of food in short periods of time, not feeling physically hungry? Yes Do you feel out of control when you eat a large amount of food in a short period of time? No Do you eat large amounts of food rapidly and typically alone? No Night Eating Do you wake up at least once during the night to eat? No If you wake up in the night, do you find that it is necessary to eat something in order to fall back asleep? No Do you have little or no appetite in the morning and feel very hungry in the evening, often overeating between dinner and when you go to bed? Yes Social History Family history and relationship Pt stated that she was raised by her parents and siblings. She reported chaotic upbringing, her father would go through episodic periods of bipolar depression and also had to raise her two younger siblings. Pt is going through a divorce from her of 11 years and they have an 8 year old daughter together. 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 Cultural/Ethnic information Legal Involvement and History Current or historical involvement with the legal system? none known Education Preferred learning style Auditory, Verbal, Written, Learn by doing and Visual Currently enrolled in educational program? No Interested in further educational program? 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 Employment Employment Status Unemployed Wants help to find employment? No Meaningful activities hiking Financial Situation Describe current financial situation Often struggles with finance Financial assistance? None Service Service? No Mental Health and Addiction Treatment Current/Past substance abuse? Yes Comments marijuana and cigarette use. Also consumes about 5 alcoholic drinks in one night when she goes out (once a week). Current/Past addictive behavior concerns? Yes Pain Screening Current pain? No Pain in the last few months? No Medications Is the patient compliant with medications? No Does the patient have [place] Guardian in place? Not applicable Does the patient use complimentary health approaches? No Trauma/Abuse History History of trauma? Yes Assessment & Plan Assessment & Plan (1) Major depressive disorder, recurrent, moderate: Code(s): F33.1 - Major depressive disorder, recurrent, moderate (2) Anxiety disorder, unspecified: Code(s): F41.9 - Anxiety disorder, unspecified (3) Obesity (BMI 30-39.9): Code(s): E66.9 - Obesity, unspecified Plan Patient has decided to put revision surgery on hold. She has been going through separation and multiple other changes. She has lost weight however still has reflux issues, smoking cigarettes and drinking coffee. patient would like to try stopping those before considering surgery as a solution. She is requesting ongoing therapy to help address anxiety and other adjustment issues from pending divorce. Telehealth Telehealth Location of provider rendering services: other Location of patient: address on file Patient Identification confirmed using: Name, : Yes Telehealth method: video Patient verbally consented to treatment: Yes Patient verbally consented to billing insurance company: Yes Patient informed of any privacy concerns related to visit: Yes Minutes spent on Phone/Video with Pt.: 45 Coding Level of Care Code Tele Psytx 45 mins ([id number]) Diagnoses Major depressive disorder, recurrent, moderate F33.1 Anxiety disorder, unspecified F41.9 Obesity (BMI 30-39.9) E66.9 Time Spent (min) 45
== END 2023-04-10 11:31 | disposition home or self-care (01) ==
LOC: HO.HBST 10:28
PROVIDERS: Visit Provider Counselor Mental Health
DX: F33.1 Major depressive disorder, recurrent, moderate (principal); F41.9 Anxiety disorder, unspecified; E66.9 Obesity, unspecified
CPT/HCPCS: 90834

== ENCOUNTER → 2023-04-10 10:28 | Outpatient (BNVA) | payer OTHER, MEDICAID, SELFPAY | PROVIDERS: Visit Provider Counselor Mental Health ==